=== PATIENT | female | born 1980 | race Caucasian/White ===

== ENCOUNTER 2019-01-06 20:01 | Emergency (ER) | payer SELFPAY, MEDICAID | END 2019-01-06 22:34 | disposition home or self-care (01) | LOC: FTE 20:01 | DX: L03.116 Cellulitis of left lower limb (principal); Z79.84 Long term (current) use of oral hypoglycemic drugs | CPT/HCPCS: 99283 ==

== ENCOUNTER 2019-01-13 19:20 | Emergency (ER) | payer MEDICAID, OTHER | END 2019-01-13 20:46 | disposition home or self-care (01) | LOC: FTE 19:20 | DX: R22.42 Localized swelling, mass and lump, left lower limb (principal); Z79.84 Long term (current) use of oral hypoglycemic drugs | CPT/HCPCS: 73590; 99283-25 ==